=== PATIENT | female | born 1985 | race Caucasian/White ===

== ENCOUNTER 2017-12-11 11:00 | Emergency (ER) | payer BC ==
[2017-12-11 11:11] VITALS: BP 99/67
--- NOTE | 2017-12-11 11:17 | ER Document Report ---
ED Medical Screen (RME) - General Chief Complaint: Headache >24 hrs old Stated Complaint: HEADACHE Time Seen by Provider: 12/11/17 11:13 Notes: RAPID MEDICAL EVALUATION DISCLOSURE I have seen this patient as part of a Rapid Medical Evaluation and, if applicable, placed any initially appropriate orders. The patient will be seen and fully evaluated, including a full history and physical exam, by a provider ( in Main ED or Fast Track) when a room becomes available. 32-year-old female PMH Chiari malformation here with complaints of clear fluid leaking from her nose. This has started over the past few days. With the leaking, she has had headaches dizziness feeling foggy and blurry vision. She is worried that her Chiari malformation may have something to do with this and is worried about CSF leaking from her nose. She was sent here by the urgent care in [place]. TRAVEL OUTSIDE OF THE [place] IN LAST 30 DAYS: No - Related Data Allergies/Adverse Reactions: No Known Allergies Allergy (Unverified 12/11/17 11:02) Physical Exam - Vital signs Vitals: Temp Pulse Resp BP Pulse Ox 98.3 F 78 20 99/67 L 100 12/11/17 11:09 12/11/17 11:09 12/11/17 11:09 12/11/17 11:09 12/11/17 11:09 Course - Vital Signs Vital signs: Temp Pulse Resp BP Pulse Ox 98.3 F 78 20 99/67 L 100 12/11/17 11:09 12/11/17 11:09 12/11/17 11:12/11/17 11:12/11/17 11:09
[2017-12-11 11:45] LABS: ABSOLUTE EOSINOPHILS # (AUTO) 0.1 10^3/uL (0.0-0.6); ABSOLUTE LYMPHOCYTES (AUTO) 1.5 10^3/uL (0.5-4.7); ABSOLUTE MONOCYTES (AUTO) 0.4 10^3/uL (0.1-1.4); ABSOLUTE NEUT (AUTO) 3.9 10^3/uL (1.7-8.2); BASOPHILS % (AUTO) 0.3 % (0-2); EOSINOPHILS % (AUTO) 2.5 % (0-6); HEMATOCRIT 41.2 % (36.0-47.0); HEMOGLOBIN 14.1 g/dL (12.0-15.5); LYMPHOCYTES % (AUTO) 24.6 % (13-45); MEAN CORPUSCULAR HEMOGLOBIN 31.7 pg (27.0-33.4); MEAN CORPUSCULAR HGB CONC 34.2 g/dL (32.0-36.0); MEAN CORPUSCULAR VOLUME 93 fl (80-97); MONOCYTES % (AUTO) 7.5 % (3-13); PLATELET COUNT 203 10^3/uL (150-450); RED BLOOD COUNT 4.43 10^6/uL (3.72-5.28); RED CELL DISTRIBUTION WIDTH 12.9 % (11.5-14.0); SEGMENTED NEUTROPHILS % (AUTO) 65.1 % (42-78); TOTAL CELLS COUNTED % (AUTO) 100 %; WHITE BLOOD COUNT 5.9 10^3/uL (4.0-10.5)
--- NOTE | 2017-12-11 12:02 | ER Document Report ---
ED Headache - General Chief Complaint: Headache >24 hrs old Stated Complaint: HEADACHE Time Seen by Provider: 12/11/17 11:13 Notes: This is a 32-year-old female patient with history of Chiari malformation to the emergency department chief complaint of a cerebral spinal fluid leak because she has Chiari malformation. Patient has never had any brain surgery. States that she has frequent headaches. Has frequent numbness and tingling. Frequent dizziness. Frequent brain fog. Patient is seen by a neurologist, psychiatrist , primary care doctor and has had a neurosurgical consultation numerous times in the past. Patient has not had any trauma. States that she has clear drainage from her nose. Was looking on the Internet as well as online chat rooms with regards to CSF leaks. Is concerned that she might have a spontaneous CSF leakage. States that the drainage is clear and nonbloody. Denies any fever, chills or sweats at this time. TRAVEL OUTSIDE OF THE [place] IN LAST 30 DAYS: No - HPI Patient reports: Congenital anomally, Frequent migraines, Hx chronic headaches - Related Data Allergies/Adverse Reactions: No Known Allergies Allergy (Unverified 12/11/17 11:02) Past Medical History - General Information source: Patient - Social History Smoking Status: Never Smoker Chew tobacco use (# tins/day): No Frequency of alcohol use: None Drug Abuse: None Lives with: Spouse/Significant other Family History: Reviewed & Not Pertinent Patient has suicidal ideation: No Patient has homicidal ideation: No - Medical History Notes: Chiari malformation, anxiety, depression, chronic headaches. Renal/ Medical History: Denies: Hx Peritoneal Dialysis Review of Systems - Review of Systems Constitutional: denies: Chills, Diaphoresis, Fever, Malaise, Weakness EENT: Nose discharge. denies: Eye pain, Tearing, Double vision, Throat swelling , Mouth swelling Cardiovascular: denies: Chest pain, Palpitations, Heart racing Respiratory: denies: Cough, Hurts to breathe, Short of breath, Wheezing Gastrointestinal: denies: Abdominal pain, Diarrhea, Nausea, Vomiting Genitourinary: denies: Burning, Dysuria, Discharge Female Genitourinary: denies: , Heavy/abnormal periods, Vaginal bleeding Musculoskeletal: denies: Back pain, Gout, Joint swelling, Muscle pain, Muscle stiffness Skin: denies: Dryness, Lesions, Lumps, Rash Neurological/Psychological: Confusion, Sensory change, Headaches, Numbness. denies: Weakness, Lost consciousness Physical Exam - Vital signs Vitals: Temp Pulse Resp BP Pulse Ox 98.3 F 78 20 99/67 L 100 12/11/17 11:09 12/11/17 11:09 12/11/17 11:09 12/11/17 11:09 12/11/17 11:09 Interpretation: Normal - General General appearance: Appears well, Alert - HEENT Head: Normocephalic, Atraumatic Eyes: Normal Pupils: PERRL Sinus: Normal. No: Tenderness Nasal: Normal. No: Bloody discharge, Purulent discharge, Swelling, Clear rhinorrhea Mucous membranes: Normal Pharynx: Normal Neck: Normal - Respiratory Respiratory status: No respiratory distress Chest status: Nontender Breath sounds: Normal Chest palpation: Normal - Cardiovascular Rhythm: Regular Heart sounds: Normal auscultation Murmur: No - Abdominal Inspection: Normal Distension: No distension Bowel sounds: Normal Tenderness: Nontender Organomegaly: No organomegaly - Back Back: Normal, Nontender - Extremities General upper extremity: Normal inspection, Nontender, Normal color, Normal ROM , Normal temperature General lower extremity: Normal inspection, Nontender, Normal color, Normal ROM , Normal temperature, Normal weight bearing. No: Jose Cruz's sign - Neurological Neuro grossly intact: Yes Cognition: Normal Orientation: AAOx4 Colby Coma Scale Eye Opening: Spontaneous Colby Coma Scale Verbal: Oriented Colby Coma Scale Motor: Obeys Commands Colby Coma Scale Total: 15 Speech: Normal Cranial nerves: Normal Cerebellar coordination: Normal Motor strength normal: LUE, RUE, LLE, RLE Additional motor exam normals: Equal principal strategist. No: Pronator drift Sensory: Normal - Psychological Associated symptoms: Normal affect, Normal mood - Skin Skin Temperature: Warm Skin Moisture: Dry Skin Color: Normal Course - Re-evaluation Re-evalutation: 12/11/17 12:20 Patient states that she would like a test to determine if the clear drainage coming out of her nose a CSF or not. I am uncertain if there is actually a test that exists right now other than tissue paper test but patient does not have trauma. I have offered a CT scan of her sinuses and head but currently she is refusing. I do not think it is acceptable at this time to do an MRI as patient is completely alert and with it with no focal neurological deficits, no coma, no fever, no neck stiffness, no trauma. I did consult with the radiologist as well who stated that the initial study of choice would be a head CT. Apparently patient states that she has had multiple CT scans and does not want a CT head of the head. 12/11/17 12:51 Explained to the patient that radiologist recommends CT scan. I have tried to explain to the patient that there is no test that I would do at this time that would be definitive with regards to testing of her rhinorrhea which incidentally she does not have on exam. I am referring her to ENT. Patient states that she called a neurologist while she was in the ER and they are going to see her tomorrow. I find nothing further at this time. Will DC. - Vital Signs Vital signs: Temp Pulse Resp BP Pulse Ox 98.3 F 78 20 99/67 L 100 12/11/17 11:09 12/11/17 11:09 12/11/17 11:09 12/11/17 11:09 12/11/17 11:09 - Laboratory Result Diagrams: 12/11/17 11:23 12/11/17 11:23 Discharge - Discharge Clinical Impression: Nasal congestion with rhinorrhea Condition: Good Disposition: HOME, SELF-CARE Additional Instructions: Rhinorrhea: You have described to us today that you have a condition called rhinorrhea. There are multiple causes for rhinorrhea. Most commonly this is related to allergies. Other causes would be sinus infections. Other causes would be more related to trauma such as a basilar skull fracture with leak of cerebrospinal fluid. There are some other causes of leakage of cerebrospinal fluid. At this time the doctor does not feel that you are having a significant concern for CSF leakage. A CT scan was recommended but you have decided against that. It will be very important that you follow-up with your doctors. A follow-up ENT specialist has been provided. The ENT specialist may be able to do direct visualization of your nasal area as well as sinuses to determine if there is any significant drainage. Please make an appointment. As with all symptoms if symptoms are getting worse or you have further concerns please do not hesitate to return for further evaluation and treatment. Please call your regular doctors and follow-up with them accordingly. Referrals: ROSSANA DOWD MD [Primary Care Provider] - Follow up as needed SHINE VALADEZ DO [ASSOCIATE] - Follow up in 3-5 days
[2017-12-11 12:17] LABS: ANION GAP 13 (5-19); BLOOD UREA NITROGEN 18 mg/dL (7-20); CALCIUM 9.4 mg/dL (8.4-10.2); CARBON DIOXIDE 23 mmol/L (22-30); CHLORIDE 107 mmol/L (98-107); GLUCOSE 77 mg/dL (75-110); POTASSIUM 4.4 mmol/L (3.6-5.0); SODIUM 143.2 mmol/L (137-145)
== END 2017-12-11 13:19 | disposition home or self-care (01) ==
LOC: ER 11:00
DX: R09.81 Nasal congestion (principal); J34.89 Other specified disorders of nose and nasal sinuses; R09.89 Other specified symptoms and signs involving the circulatory and respiratory systems; R51 Headache; R42 Dizziness and giddiness; R20.0 Anesthesia of skin
CPT/HCPCS: 36415; 80048; 84703; 85025; 99284